=== PATIENT | female | born 1950 | race Caucasian/White ===

== ENCOUNTER 2017-08-01 13:19 | Emergency (ER) | payer SELFPAY ==
--- NOTE | 2017-08-01 14:08 | ED.PDOC ---
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 Seen by Provider: 08/01/17 13:25 Source: patient, RN notes reviewed Exam Limitations: no limitations Additional Information: 66 YEAR OLD WHITE FEMALE HERE FOR EVALUATION OF LOSS OF VISION OF LEFT EYE ASSOCIATED WITH HEADACHE AND DIZZINESS AND TWITCHING JUST PRIOR TO ARRIVAL SHE HAS HISTORY OF HYPERTENSION DID NOT TAKE HER MEDICATION FOR 3 DAYS UNDER A LOT OF STRESS APPARENTLY IN THE PROCESS OF DIVORCE AFTER 30 YEARS OF MARRIAGE HE FAMILY HISTORY IS SIGNIFICANT FOR HEMORRHAGIC STROKE CVA ( HER BROTHER HER PATERNAL AUNT ) SHE HAS NO SLURRED SPEECH NO FACIAL NUMBNESS NO NUMBNESS WEAKNESS OF EXTREMITIES - History of Present Illness Timing/Duration: episodic Quality: mild Recent Head Trauma: no recent headache/trauma Improving Factors: nothing Worsening Factors: nothing Allergies/Adverse Reactions: Allergies NO KNOWN ALLERGY Allergy (Verified 08/01/17 14:03) Home Medications: Ambulatory Orders Alprazolam [Xanax] 1 mg PO DAILY 08/01/17 Lisinopril 10 mg PO DAILY 08/01/17 Thyroid [Wiseman Thyroid] 15 mg PO DAILY 08/01/17 Review of Systems - Review of Systems Constitutional: States: no symptoms reported EENTM: States: no symptoms reported, blurred vision Respiratory: States: no symptoms reported Cardiology: States: no symptoms reported Gastrointestinal/Abdominal: States: no symptoms reported, abdominal pain Genitourinary: States: no symptoms reported Musculoskeletal: States: no symptoms reported Skin: States: no symptoms reported Neurological: States: headache Endocrine: States: no symptoms reported Hematologic/Lymphatic: States: no symptoms reported Family Medical History - Family History Grandparents Family History: Unknown Physical Exam - Physical Exam General Appearance: Alert, Anxious, No apparent distress Eyes, Ears, Nose, Throat Exam: PERRL/EOMI, normal ENT inspection, TMs normal, pharynx normal Neck: non-tender, full range of motion, supple, normal inspection Cardiovascular/Chest: normal peripheral pulses, regular rate, rhythm, no edema, no gallop, no JVD Respiratory: chest non-tender, lungs clear, normal breath sounds, no respiratory distress, no accessory muscle use Gastrointestinal/Abdominal: normal bowel sounds, non tender, soft, no organomegaly Back Exam: normal inspection, no CVA tenderness, no vertebral tenderness Extremity: normal range of motion Mental Status: alert, oriented x 3 rotary driller helper Exam: normal hearing, normal speech, PERRL Motor/Sensory: no motor deficit, no sensory deficit, no pronator drift, negative Babinski's sign Lower Extremity DTR: left, patellar: 2+, right, patellar: 2+, left, achilles: 2+ , right, achilles: 2+ Skin Exam: warm/dry Lymphatic: no adenopathy Departure - Departure Clinical Impression: Amaurosis fugax of left eye, Hypertension, Psychotic episode Time of Disposition: 15:31 Disposition: Transfer to Hospital Condition: Good Referrals: MYLES CHARLES IV, [employer] [Primary Care Provider] - 1-2 Weeks Home Medications: Ambulatory Orders Alprazolam [Xanax] 1 mg PO DAILY 08/01/17 Lisinopril 10 mg PO DAILY 08/01/17 Thyroid [Wiseman Thyroid] 15 mg PO DAILY 08/01/17 Comments: PT TRANSFERRED TO [facility] FOR STROKE WORK UP . DISCUSSED WITH DR WELCH HER PRESENTING SYMPTOMS AND PHYSICAL EXAM WHICH IS NORMAL HERE IN THE ED
--- NOTE | 2017-08-01 14:38 | CT ---
EXAM DESCRIPTION: CT-Head CLINICAL HISTORY: CVA COMPARISON: None available TECHNIQUE: Multiple axial images of the head without contrast. Multiplanar reformatted images. This exam was performed according to our departmental dose-optimization program, which includes automated exposure control, adjustment of the mA and/or kV according to patient size and/or use of iterative reconstruction technique. FINDINGS: There is no CT evidence of intracranial hemorrhage, mass effect, or large territory infarction. There is moderate volume loss which is slightly frontotemporal dominant. Mild patchy supratentorial white matter hypodensities. Mineralization in the basal ganglia. There are no abnormal extra-axial fluid collections. Calcific plaque in the visualized arteries. There is no acute calvarial defect. Mild mucosal thickening in the ethmoid air cells and trace fluid in the sphenoid sinuses. The mastoid air cells are clear. IMPRESSION: 1. No CT evidence of an acute intracranial abnormality. If there is concern for an acute or subacute infarct, consider follow-up MRI. 2. Frontotemporal dominant volume loss. 3. Mild senescent changes. 4. Inflammatory changes in the paranasal sinuses. Electronically signed by: Tino Andrade MD 08/01/2017 2:36 PM CDT
[2017-08-01] MEDS ORDERED: ASPIRIN TABLET 325 MG TAB PO ONE (15:39)
[2017-08-01] MEDS ORDERED: LORazepam 0.5 MG TAB PO ONE (16:26)
[2017-08-01 16:31] VITALS: BP 169/95; TEMP 99.6; O2SAT 98
== END 2017-08-01 16:32 | disposition short-term general hospital (02) ==
LOC: ER 13:19
DX: G45.3 Amaurosis fugax (principal); I10 Essential (primary) hypertension; F23 Brief psychotic disorder; R51 Headache; Z82.3 Family history of stroke